=== PATIENT | female | born 1955 | race Caucasian/White ===

== ENCOUNTER → 2017-07-12 | Outpatient (CLI) | payer BC ==
[2016-05-23 10:00] VITALS: BP 115/65
[~2017-07-12] MED LIST: ACET325T9 PO; ASCO500T3 PO; BEE550CA PO; CALC500T30 PO; CETI10TA22 PO; CHOL10003 PO; CIPR500T94 PO; GARL5000 PO; IOHEXOL 240 MG/ML 50ML VIAL. PO ONE; IOHEXOL 300 MG/ML 100ML VIAL. IV ONE; MELA10CA PO; METR500T PO; NYST100054 SWSW; ONDA4TAB7 PO; RANI150T6 PO
--- NOTE | 2017-07-12 13:28 | KCIC ---
CT abdomen and pelvis with contrast History: Right lower quadrant pain for a few days, history of appendectomy and hysterectomy Technique: After the administration of oral and intravenous contrast, CT imaging was performed of the abdomen and pelvis. Multiplanar images are reviewed. Exposure: One or more of the following individualized dose reduction techniques were utilized for this examination: 1. Automated exposure control 2. Adjustment of the mA and/or kV according to patient size 3. Use of iterative reconstruction technique. Contrast: 89 cc Omnipaque 300 Comparison: January 11, 2012 Findings: There has been interval cholecystectomy. No new focal abnormality is identified of the liver, spleen, pancreas. Both kidneys enhance, no hydronephrosis. Hypodense lesion of the mid left kidney is larger up to 1.6 cm, density measurements of a cyst at 7 Hounsfield units. There is no adrenal nodularity. Bowel is not significantly dilated. There is moderate to severe diverticulosis of the sigmoid colon with associated the mild hazy and strandy change and relative wall thickening of the mid sigmoid colon located in the central and left pelvis. No discrete abscess or free air is identified. There is some displacement of the contrast in the inferior aspect of the cecum, underlying 4.2 cm CC mass not excluded. There is multilevel lumbar facet degenerative change.. Impression: 1. There is diverticulosis greatest of the sigmoid colon, also some relative wall prominence and mild strandy change about the mid sigmoid colon which may be seen with diverticulitis. Cecal mass cannot be excluded on this exam, displacement of the contrast by focus of density although could be due to underlying stool. Colon screening is advised if this has not been performed. There is no free air or free fluid. 2. There is left renal cyst. Electronically signed by: Antonino Salazar MD (07/12/2017 1:25 PM) [id number]
== END | disposition home or self-care (01) ==
LOC: KCIC CT 10:24
PROVIDERS: ATTEND Internal Medicine Gastroenterology
DX: K57.90 Diverticulosis of intestine, part unspecified, without perforation or abscess without bleeding (principal); N28.1 Cyst of kidney, acquired
CPT/HCPCS: 74177; Q9966; Q9967

== ENCOUNTER 2017-08-18 16:41 | Inpatient (IN) | payer BC ==
[~2017-08-18] VITALS: Ht 175.3 cm; Wt 73.5 kg
[~2017-08-18 16:41] MED LIST changes: -IOHEXOL 240 MG/ML 50ML VIAL. PO ONE; -IOHEXOL 300 MG/ML 100ML VIAL. IV ONE
[2017-08-18] MEDS ORDERED: IV NORMAL SALINE 1000ML BAG 1,000 ML IV ONE (17:00)
[2017-08-18 17:08] LABS: BASO # 0.1 x10^3/uL (0.0-0.2); BASO % 1 % (0-3); EOS % 2 % (0-3); HEMATOCRIT 36.9 % (36.0-47.0); HEMOGLOBIN 12.7 g/dL (12.0-15.5); LYMPH # 0.5 x10^3/uL (1.0-4.8); LYMPH % 4 % (24-48); MEAN CORPUSCULAR HEMOGLOBIN 30 pg (25-35); MEAN CORPUSCULAR HGB CONC 34 g/dL (31-37); MEAN CORPUSCULAR VOLUME 87 fL (79-100); MONO % 5 % (0-9); NEUT % 88 % (31-73); PLATELET COUNT 225 x10^3/uL (140-400); RED BLOOD COUNT 4.22 x10^6/uL (3.50-5.40); WHITE BLOOD COUNT 11.9 x10^3/uL (4.0-11.0)
[2017-08-18 17:17] LABS: CALCIUM 9.6 mg/dL (8.5-10.1); CREATININE 0.9 mg/dL (0.6-1.0); GFR 63.4; POTASSIUM 3.7 mmol/L (3.5-5.1)
[2017-08-18 17:22] LABS: ALBUMIN/GLOBULIN RATIO 1.2 (1.0-1.7); TOTAL BILIRUBIN 0.6 mg/dL (0.2-1.0); TOTAL PROTEIN 7.4 g/dL (6.4-8.2)
[2017-08-18] MEDS ORDERED: KETOROLAC 15 MG/ML VIAL. IV ONE (17:30)
[2017-08-18] MEDS ORDERED: IV NORMAL SALINE 1000ML BAG 2,790 ML IV SCH (17:30)
[2017-08-18 17:36] LABS: BILIRUBIN,URINE NEGATIVE (NEG); GLUCOSE,URINE NEGATIVE (NEG); NITRITE,URINE NEGATIVE (NEG); PROTEIN,URINE NEGATIVE (NEG-TRACE); RBC,URINE OCC /HPF (0-2); UROBILINOGEN,URINE 0.2 mg/dL (0.2 mg/dL)
[2017-08-18 17:37] LABS: BACTERIA,URINE 0 /HPF (0-FEW); SQUAMOUS EPITHELIAL CELL,UR OCC /LPF; WBC,URINE OCC /HPF (0-4)
[2017-08-18 18:11] LABS: % EOS 1 % (0-5)
[2017-08-18 18:13] LABS: PLT ESTIMATE ADEQUATE (ADEQUATE)
[2017-08-18] MEDS ORDERED: CONTRAST GIVEN MC PRN (19:00)
[2017-08-18] MEDS ORDERED: IOHEXOL 300 MG/ML 75 ML VIAL IV ONE (19:15)
--- NOTE | 2017-08-18 20:20 | RAD ---
CTA OF THE CHEST WITH AND WITHOUT CONTRAST Clinical indications: Chest pain. Shortness of air. Tachycardia. Elevated d-dimer. Technique: Noncontrast axial localizer was performed. After IV infusion of 75 cc of Omnipaque 300, helical CT scanning of the chest was performed using the CT pulmonary embolism protocol. A coronal MIP reconstruction was generated. PQRS compliance Statement One or more of the following individualized dose reduction techniques were utilized for this study: 1. Automated exposure control 2. Adjustment of the mA and/or kV according to patient size 3. Use of iterative reconstruction technique Comparison: March 21, 2010. Findings: No pulmonary embolism is evident. No thoracic aortic dissection or focal aneurysmal dilatation is seen. The heart size is normal and no pericardial effusion is seen. There are lymph nodes present within the aortopulmonary window and precarinal region and subcarinal region and azygos region and right paratracheal region and right hilar region. The largest lymph node is in the subcarinal region measuring 21 mm. This was seen previously and is unchanged. The aortic pulmonary window lymph nodes are new. The largest lymph node here measures only 9 mm. The right hilar lymph nodes are new. The largest lymph node here is 17 mm. No enlarged axillary lymphadenopathy is seen. A small hiatal hernia is seen. Bilateral interstitial and nodular lung infiltrates are seen including the right middle lobe and the lingula of the left upper lobe. No pleural effusion or pneumothorax is seen. The proximal bronchial tree is patent. The posterior left costophrenic angle and adrenal glands are not included in this study. No osteolytic process is seen. IMPRESSION: No pulmonary embolism. Interstitial and nodular lung infiltrates within the right middle lobe and the lingula of the left upper lobe which could represent inflammatory disease or infection. Reactive lymphadenopathy of the mediastinum and right hilum. Electronically signed by: Joshua Murray MD (08/18/2017 8:17 PM) [facility]
[2017-08-18] MEDS ORDERED: ACETAMINOPHEN 500 MG TABLET PO ONE (20:30)
[2017-08-18] MEDS ORDERED: ACETAMINOPHEN 325 MG TABLET. PO PRN (20:45)
[2017-08-18] MEDS ORDERED: ONDANSETRON PF 4 MG/2 ML VIAL. IV PRN (20:45)
[2017-08-18] MEDS ORDERED: VANCOMYCIN PER PHARMACY MC PRN (20:45)
--- NOTE | 2017-08-18 21:05 | PHYS DOC ---
Past Medical History Past Medical History: Bronchitis, COPD, Diverticulosis, Pneumonia, Other Additional Past Medical Histor: IBS, Spastic colon Past Surgical History: Cholecystectomy, Hysterectomy, Tonsillectomy, Tubal ligation, Other Additional Past Surgical Histo: [place], right finger Alcohol Use: Occasionally Drug Use: None Adult General Chief Complaint Chief Complaint: SHORTNESS OF BREATH HPI HPI Patient is a 61 year old female with a history significant for pneumonia in the past who presents here today complaining of fevers, cough, left-sided sharp reproducible pleuritic chest pain has been going on for several days now. Patient reports that she was recently seen and treated by her primary care physician for urinary tract infection and just finished a course of Macrodantin. Patient reports while she is taking the antibiotic she started having cough and fevers. Patient reports that she feels short of breath with ambulation. Patient denies any lower STEMI edema. Patient denies any history of PE or DVT in the past. Patient denies any pain radiating to her jaw back or arms. Patient reports occasional diaphoresis. Patient denies any ear pain or abdominal pain. Patient has a sore throat. Patient describes the pain as a sharp burning discomfort that increases with cough and his deep inspiration. Patient reports she's had low-grade fevers at home and took Tylenol approximately half an hour prior to arrival to the ER. Patient has a history significant for COPD, fibromyalgia rheumatica, total abdominal hysterectomy, cholecystectomy, ectopic , appendectomy. Patient denies any tobacco alcohol or drugs. Patient denies any history of hypertension diabetes liver or kidney problems in the past. Review of systems: Constitutional: Tactile fever Eyes: Denies change in visual acuity, redness, or eye pain HENT: Denies nasal congestion or sore throat Respiratory: Nonproductive cough, shortness of breath All other review systems negative except as documented in the history of present illness portion. Physical exam: Constitutional: Well developed, well nourished, no acute distress, non-toxic appearance. HENT: Normocephalic, atraumatic, bilateral external ears normal, nose normal. Eyes: PERRLA, EOMI, conjunctiva normal, no discharge. Neck: Normal range of motion, no tenderness, supple, no stridor. Cardiovascular:Heart rate regular rhythm, tachycardic 100% reproducible tenderness to palpation to her left anterior chest wall. Pain reproducible with deep inspiration. Lungs & Thorax: Bilateral breath sounds clear to auscultation Abdomen: Bowel sounds normal, soft, no tenderness, no masses, no pulsatile masses. Skin: Warm, dry, no erythema, no rash. Back: No tenderness, no CVA tenderness. Extremities: No tenderness, no cyanosis, ROM intact, no edema. Neurologic: Alert and oriented X 3, normal motor function, normal sensory function, no focal deficits noted. Psychologic: Affect normal, judgement normal, mood normal. Laboratory Tests Test 08/18/17 16:50 08/18/17 17:15 White Blood Count 11.9 x10^3/uL Red Blood Count 4.22 x10^6/uL Hemoglobin 12.7 g/dL Hematocrit 36.9 % Mean Corpuscular Volume 87 fL Mean Corpuscular Hemoglobin 30 pg Mean Corpuscular Hemoglobin Concent 34 g/dL Red Cell Distribution Width 14.0 % Platelet Count 225 x10^3/uL Neutrophils (%) (Auto) 88 % Lymphocytes (%) (Auto) 4 % Monocytes (%) (Auto) 5 % Eosinophils (%) (Auto) 2 % Basophils (%) (Auto) 1 % Neutrophils # (Auto) 10.4 x10^3uL Lymphocytes # (Auto) 0.5 x10^3/uL Monocytes # (Auto) 0.6 x10^3/uL Eosinophils # (Auto) 0.3 x10^3/uL Basophils # (Auto) 0.1 x10^3/uL Segmented Neutrophils % 86 % Band Neutrophils % 3 % Lymphocytes % 6 % Monocytes % 4 % Eosinophils % 1 % Platelet Estimate Adequate D-Dimer (Zahida) 0.57 ug/mlFEU Sodium Level 140 mmol/L Potassium Level 3.7 mmol/L Chloride Level 103 mmol/L Carbon Dioxide Level 27 mmol/L Anion Gap 10 Blood Urea Nitrogen 10 mg/dL Creatinine 0.9 mg/dL Estimated GFR (Cockcroft-Gault) 63.4 BUN/Creatinine Ratio 11 Glucose Level 118 mg/dL Lactic Acid Level 1.1 mmol/L Calcium Level 9.6 mg/dL Total Bilirubin 0.6 mg/dL Aspartate Amino Transf (AST/SGOT) 22 U/L Alanine Aminotransferase (ALT/SGPT) 24 U/L Alkaline Phosphatase 75 U/L Troponin I Quantitative < 0.017 ng/mL Total Protein 7.4 g/dL Albumin 4.0 g/dL Albumin/Globulin Ratio 1.2 Lipase 126 U/L Urine Collection Type Unknown Urine Color Yellow Urine Clarity Clear Urine pH 7.0 Urine Specific [place] <=1.005 Urine Protein Negative mg/dL Urine Glucose (UA) Negative mg/dL Urine Ketones (Stick) Negative mg/dL Urine Blood Negative Urine Nitrite Negative Urine Bilirubin Negative Urine Urobilinogen Dipstick 0.2 mg/dL Urine Leukocyte Esterase Negative Urine RBC Occ /HPF Urine WBC Occ /HPF Urine Squamous Epithelial Cells Occ /LPF Urine Bacteria 0 /HPF Current Medications Medications (Trade) Dose Ordered Sig/Nicole Route PRN Reason Start Time Stop Time Status Last Admin Dose Admin Ketorolac Tromethamine (Toradol) 15 mg 1X ONCE IV 08/18/17 17:30 08/18/17 17:31 DC 08/18/17 17:25 15 MG Sodium Chloride 1,000 ml @ 1,000 mls/hr 1X ONCE IV 08/18/17 17:00 08/18/17 17:59 DC 08/18/17 17:25 1,000 MLS/HR Sodium Chloride 2,790 ml @ 2,790 mls/hr Q1H IV 08/18/17 17:30 08/18/17 18:29 DC 08/18/17 18:44 2,790 MLS/HR Iohexol (Omnipaque 300 Mg/ml) 75 ml 1X ONCE IV 08/18/17 19:15 08/18/17 19:16 DC 08/18/17 18:59 75 ML Info (Do NOT chart on this entry -- for MONITORING) 1 each PRN DAILY PRN MC SEE COMMENTS 08/18/17 19:00 08/20/17 18:59 Acetaminophen (Tylenol) 1,000 mg 1X ONCE PO 08/18/17 20:30 08/18/17 20:31 DC 08/18/17 20:10 1,000 MG Levofloxacin/ Dextrose 100 ml @ 100 mls/hr 1X ONCE IV 08/18/17 21:00 08/18/17 21:59 08/18/17 20:51 100 MLS/HR Vancomycin HCl (Vanco Per Pharmacy) 1 each PRN DAILY PRN MC SEE COMMENTS 08/18/17 20:45 UNV Vancomycin HCl 1.5 gm/Sodium Chloride 500 ml @ 250 mls/hr 1X ONCE IV 08/18/17 22:00 08/18/17 23:59 Assessment and plan this is a 61-year-old female who presents here today secondary to generalized malaise, fevers, shortness of breath, chest pain. Patient's ER workup is been significant for a bilobar pneumonia. Patient had a CT scan of her chest secondary to an elevated d-dimer, tachycardia, chest pain. Since CTA of her chest revealed interstitial nodular lung infiltrates within the right middle lobe in the lingula of the left upper lobe should represent inflammatory disease versus infection. There was reactive lymphadenopathy of the mediastinum and the right hilum. Given patient's symptoms and recent bleed finishing antibiotics for urinary tract infection and still developing a bilobar pneumonia feel the patient will would benefit from IV antibiotics. I discussed the case with Dr. Anton. Patient will be admitted and will be reevaluated in the morning. Current Medications Current Medications Current Medications Medications (Trade) Dose Ordered Sig/Nicole Start Time Stop Time Status Last Admin Dose Admin Acetaminophen (Tylenol) 1,000 mg 1X ONCE 08/18/17 20:30 08/18/17 20:31 DC 08/18/17 20:10 1,000 MG Info (Do NOT chart on this entry -- for MONITORING) 1 each PRN DAILY PRN 08/18/17 19:00 08/20/17 18:59 Iohexol (Omnipaque 300 Mg/ml) 75 ml 1X ONCE 08/18/17 19:15 08/18/17 19:16 DC 08/18/17 18:59 75 ML Ketorolac Tromethamine (Toradol) 15 mg 1X ONCE 08/18/17 17:30 08/18/17 17:31 DC 08/18/17 17:25 15 MG Levofloxacin/ Dextrose 100 ml @ 100 mls/hr 1X ONCE 08/18/17 21:00 08/18/17 21:59 08/18/17 20:51 100 MLS/HR Sodium Chloride 2,790 ml @ 2,790 mls/hr Q1H 08/18/17 17:30 08/18/17 18:29 DC 08/18/17 18:44 2,790 MLS/HR Vancomycin HCl (Vanco Per Pharmacy) 1 each PRN DAILY PRN 08/18/17 20:45 UNV Vancomycin HCl 1.5 gm/Sodium Chloride 500 ml @ 250 mls/hr 1X ONCE 08/18/17 22:00 08/18/17 23:59 Allergies Allergies Allergies Coded Allergies Type Severity Reaction Last Updated Verified Latex, Natural Rubber Allergy Intermediate 12/01/14 Yes Penicillins Allergy Intermediate hives 11/30/14 Yes Proton Pump Inhibitors Allergy Intermediate 05/23/16 Yes Sulfa (Sulfonamide Antibiotics) Allergy Intermediate hives 11/30/14 Yes amoxicillin Allergy Intermediate hives 11/30/14 Yes cefpodoxime Allergy Intermediate hives 11/30/14 Yes doxycycline Allergy Intermediate hives 11/30/14 Yes erythromycin base Allergy Intermediate hives 11/30/14 Yes omeprazole Allergy Intermediate feeling of pressure in her head and chest 11/30 Yes Current Patient Data Vital Signs Vital Signs Date Time Temp Pulse Resp B/P (MAP) Pulse Ox O2 Delivery O2 Flow Rate FiO2 08/18/17 20:10 99.1 112 20 137/63 (87) 97 Room Air 99.1 Lab Values Laboratory Tests Test 08/18/17 16:50 08/18/17 17:15 White Blood Count 11.9 x10^3/uL (4.0-11.0) H Red Blood Count 4.22 x10^6/uL (3.50-5.40) Hemoglobin 12.7 g/dL (12.0-15.5) Hematocrit 36.9 % (36.0-47.0) Mean Corpuscular Volume 87 fL (79-100) Mean Corpuscular Hemoglobin 30 pg (25-35) Mean Corpuscular Hemoglobin Concent 34 g/dL (31-37) Red Cell Distribution Width 14.0 % (11.5-14.5) Platelet Count 225 x10^3/uL (140-400) Neutrophils (%) (Auto) 88 % (31-73) H Lymphocytes (%) (Auto) 4 % (24-48) L Monocytes (%) (Auto) 5 % (0-9) Eosinophils (%) (Auto) 2 % (0-3) Basophils (%) (Auto) 1 % (0-3) Neutrophils # (Auto) 10.4 x10^3uL (1.8-7.7) H Lymphocytes # (Auto) 0.5 x10^3/uL (1.0-4.8) L Monocytes # (Auto) 0.6 x10^3/uL (0.0-1.1) Eosinophils # (Auto) 0.3 x10^3/uL (0.0-0.7) Basophils # (Auto) 0.1 x10^3/uL (0.0-0.2) Segmented Neutrophils % 86 % (35-66) H Band Neutrophils % 3 % (0-9) Lymphocytes % 6 % (24-48) L Monocytes % 4 % (0-10) Eosinophils % 1 % (0-5) Platelet Estimate Adequate (ADEQUATE) D-Dimer (Zahida) 0.57 ug/mlFEU (0.00-0.50) H Sodium Level 140 mmol/L (136-145) Potassium Level 3.7 mmol/L (3.5-5.1) Chloride Level 103 mmol/L (98-107) Carbon Dioxide Level 27 mmol/L (21-32) Anion Gap 10 (6-14) Blood Urea Nitrogen 10 mg/dL (7-20) Creatinine 0.9 mg/dL (0.6-1.0) Estimated GFR (Cockcroft-Gault) 63.4 BUN/Creatinine Ratio 11 (6-20) Glucose Level 118 mg/dL (70-99) H Lactic Acid Level 1.1 mmol/L (0.4-2.0) Calcium Level 9.6 mg/dL (8.5-10.1) Total Bilirubin 0.6 mg/dL (0.2-1.0) Aspartate Amino Transferase (AST) 22 U/L (15-37) Alanine Aminotransferase (ALT) 24 U/L (14-59) Alkaline Phosphatase 75 U/L (46-116) Troponin I Quantitative < 0.017 ng/mL (0.000-0.055) Total Protein 7.4 g/dL (6.4-8.2) Albumin 4.0 g/dL (3.4-5.0) Albumin/Globulin Ratio 1.2 (1.0-1.7) Lipase 126 U/L (73-393) Urine Collection Type Unknown Urine Color Yellow Urine Clarity Clear Urine pH 7.0 Urine Specific [place] <=1.005 Urine Protein Negative mg/dL (NEG-TRACE) Urine Glucose (UA) Negative mg/dL (NEG) Urine Ketones (Stick) Negative mg/dL (NEG) Urine Blood Negative (NEG) Urine Nitrite Negative (NEG) Urine Bilirubin Negative (NEG) Urine Urobilinogen Dipstick 0.2 mg/dL (0.2 mg/dL) Urine Leukocyte Esterase Negative (NEG) Urine RBC Occ /HPF (0-2) Urine WBC Occ /HPF (0-4) Urine Squamous Epithelial Cells Occ /LPF Urine Bacteria 0 /HPF (0-FEW) Laboratory Tests 08/18/17 16:50 Laboratory Tests 08/18/17 16:50 EKG EKG [] Radiology/Procedures Radiology/Procedures [] Course & Med Decision Making Course & Med Decision Making Pertinent Labs and Imaging studies reviewed. (See chart for details) [] Dragon Disclaimer Dragon Disclaimer This electronic medical record was generated, in whole or in part, using a voice recognition dictation system. Departure Departure Impression: Primary Impression: Pneumonia Additional Impression: Failure of outpatient treatment Disposition: 09 ADMITTED INPATIENT Admitting Physician: Wilian Trujillo Condition: STABLE Referrals: Piotr TRUJILLO MD (PCP) Problem Qualifiers RASHAUN SPENCE MD Aug 18, 2017 21:04
[2017-08-18] MEDS: IV NORMAL SALINE 1000ML BAG 1,000 ML IV SCH (21:10)
[2017-08-18 21:45] VITALS: BP 137/66
[2017-08-18] MEDS ORDERED: VANCOMYCIN 1.5 GM in IV NORMAL SALINE 500ML BAG 500 ML IV ONE (22:00)
[2017-08-18] MEDS ORDERED: UBID100C26 PO (22:17)
[2017-08-18] MEDS ORDERED: OMEG1CAP6 PO (22:17)
[2017-08-18] MEDS ORDERED: GARL5000 PO (22:17)
[2017-08-19 03:46] VITALS: BP 125/63
[2017-08-19] MEDS: IV NORMAL SALINE 1000ML BAG 1,000 ML IV SCH (04:45)
[2017-08-19 07:00] VITALS: BP 123/63
--- NOTE | 2017-08-19 07:45 | EKG ---
[facility] [address] [place] [address] Test Date: 2017-08-18 Test Time: 16:45:50 Pat Name: SAKSHI STARKS Department: Room: [facility] Gender: F Assistant Editor: : 1955 Requested By: RASHAUN SPENCE Order Number: [id number] Reading MD: Vilma Murphy Measurements Intervals [place] Rate: 114 P: 132 CT: 158 QRS: 101 QRSD: 82 T: 128 QT: 324 QTc: 450 Interpretive Statements SINUS TACHYCARDIA RIGHTWARD AXIS QRS(T) CONTOUR ABNORMALITY CONSIDER ANTEROLATERAL MYOCARDIAL DAMAGE CONSIDER INFERIOR MYOCARDIAL DAMAGE ABNORMAL ECG Electronically Signed On 08-19-2017 19:29:26 CDT by Vilma Murphy
--- NOTE | 2017-08-19 09:34 | RAD ---
2 view CXR: Clinical indications: Chest pain today.. Comparison: May 23, 2016. Findings: Hyperinflation is seen consistent with COPD. Chronic elevation right hemidiaphragm and chronic pleural thickening on the right side is seen. No new lung infiltrate or pleural effusion or pulmonary edema or lung mass or pneumothorax is seen. The heart size, pulmonary vasculature, mediastinum and both rajinder are unremarkable. The osseous structures appear intact. Impression: No new radiographic abnormality is seen.
[2017-08-19] MEDS ORDERED: VANCOMYCIN 1 GM in IV NORMAL SALINE 250ML 250 ML IV SCH (10:00)
[2017-08-19 11:00] VITALS: BP 121/65
[2017-08-19] MEDS ORDERED: ZOLPIDEM 5 MG TABLET. PO PRN (11:45)
--- NOTE | 2017-08-19 11:51 | PDOC ---
PROGRESS NOTES Subjective Subjective Patient reports that her breathing is somewhat improved from yesterday. Still having sharp lateral left chest pain with deep breaths. Objective Objective Vital Signs Date Time Temp Pulse Resp B/P (MAP) Pulse Ox O2 Delivery O2 Flow Rate FiO2 08/19/17 08:00 Room Air 08/19/17 07:00 98.6 95 20 123/63 (83) 96 98.6 Physical Exam Abdomen: Normal bowel sounds, Soft, No tenderness Heart: Regular rate Extremities: No edema General: Alert, Oriented X3, No acute distress Lungs: Other (BS decreased throughout, few crackles, no wheezes heard, cough with deep breath) MUSCULOSKELETAL: Other (TTP over left lateral chest wall, no rash present) Assessment Assessment Problems Medical Problems: (1) Failure of outpatient treatment Status: Acute (2) Pneumonia Status: Acute Plan Plan of Care 1. Atypical pneumonia with COPD - some interstitial infiltrates with reactive lymphadenopathy seen on CT of chest. No hypoxia on room air. Patient did have fever of 101 this AM. Continue Levaquin, start nebs, check for influenza ( patient declines flu shots). Patient does report she was diagnosed with COPD by Dr Hendrickson and advised she might need an inhaler when she got sick but would not need one otherwise. Consider adding steroids to tx if patient fails to improve with above tx. Scheduled Naprosyn for pleuritic pain. Comment Review of Relevant I have reviewed the following items suellen (where applicable) has been applied. Labs Laboratory Tests Test 08/18/17 16:50 08/18/17 17:15 White Blood Count 11.9 x10^3/uL (4.0-11.0) Red Blood Count 4.22 x10^6/uL (3.50-5.40) Hemoglobin 12.7 g/dL (12.0-15.5) Hematocrit 36.9 % (36.0-47.0) Mean Corpuscular Volume 87 fL (79-100) Mean Corpuscular Hemoglobin 30 pg (25-35) Mean Corpuscular Hemoglobin Concent 34 g/dL (31-37) Red Cell Distribution Width 14.0 % (11.5-14.5) Platelet Count 225 x10^3/uL (140-400) Neutrophils (%) (Auto) 88 % (31-73) Lymphocytes (%) (Auto) 4 % (24-48) Monocytes (%) (Auto) 5 % (0-9) Eosinophils (%) (Auto) 2 % (0-3) Basophils (%) (Auto) 1 % (0-3) Neutrophils # (Auto) 10.4 x10^3uL (1.8-7.7) Lymphocytes # (Auto) 0.5 x10^3/uL (1.0-4.8) Monocytes # (Auto) 0.6 x10^3/uL (0.0-1.1) Eosinophils # (Auto) 0.3 x10^3/uL (0.0-0.7) Basophils # (Auto) 0.1 x10^3/uL (0.0-0.2) Segmented Neutrophils % 86 % (35-66) Band Neutrophils % 3 % (0-9) Lymphocytes % 6 % (24-48) Monocytes % 4 % (0-10) Eosinophils % 1 % (0-5) Platelet Estimate Adequate (ADEQUATE) D-Dimer (Zahida) 0.57 ug/mlFEU (0.00-0.50) Sodium Level 140 mmol/L (136-145) Potassium Level 3.7 mmol/L (3.5-5.1) Chloride Level 103 mmol/L (98-107) Carbon Dioxide Level 27 mmol/L (21-32) Anion Gap 10 (6-14) Blood Urea Nitrogen 10 mg/dL (7-20) Creatinine 0.9 mg/dL (0.6-1.0) Estimated GFR (Cockcroft-Gault) 63.4 BUN/Creatinine Ratio 11 (6-20) Glucose Level 118 mg/dL (70-99) Lactic Acid Level 1.1 mmol/L (0.4-2.0) Calcium Level 9.6 mg/dL (8.5-10.1) Total Bilirubin 0.6 mg/dL (0.2-1.0) Aspartate Amino Transf (AST/SGOT) 22 U/L (15-37) Alanine Aminotransferase (ALT/SGPT) 24 U/L (14-59) Alkaline Phosphatase 75 U/L (46-116) Troponin I Quantitative < 0.017 ng/mL (0.000-0.055) Total Protein 7.4 g/dL (6.4-8.2) Albumin 4.0 g/dL (3.4-5.0) Albumin/Globulin Ratio 1.2 (1.0-1.7) Lipase 126 U/L (73-393) Urine Collection Type Unknown Urine Color Yellow Urine Clarity Clear Urine pH 7.0 Urine Specific [place] <=1.005 Urine Protein Negative mg/dL (NEG-TRACE) Urine Glucose (UA) Negative mg/dL (NEG) Urine Ketones (Stick) Negative mg/dL (NEG) Urine Blood Negative (NEG) Urine Nitrite Negative (NEG) Urine Bilirubin Negative (NEG) Urine Urobilinogen Dipstick 0.2 mg/dL (0.2 mg/dL) Urine Leukocyte Esterase Negative (NEG) Urine RBC Occ /HPF (0-2) Urine WBC Occ /HPF (0-4) Urine Squamous Epithelial Cells Occ /LPF Urine Bacteria 0 /HPF (0-FEW) Laboratory Tests Test 08/18/17 16:50 08/18/17 17:15 White Blood Count 11.9 x10^3/uL (4.0-11.0) Red Blood Count 4.22 x10^6/uL (3.50-5.40) Hemoglobin 12.7 g/dL (12.0-15.5) Hematocrit 36.9 % (36.0-47.0) Mean Corpuscular Volume 87 fL (79-100) Mean Corpuscular Hemoglobin 30 pg (25-35) Mean Corpuscular Hemoglobin Concent 34 g/dL (31-37) Red Cell Distribution Width 14.0 % (11.5-14.5) Platelet Count 225 x10^3/uL (140-400) Neutrophils (%) (Auto) 88 % (31-73) Lymphocytes (%) (Auto) 4 % (24-48) Monocytes (%) (Auto) 5 % (0-9) Eosinophils (%) (Auto) 2 % (0-3) Basophils (%) (Auto) 1 % (0-3) Neutrophils # (Auto) 10.4 x10^3uL (1.8-7.7) Lymphocytes # (Auto) 0.5 x10^3/uL (1.0-4.8) Monocytes # (Auto) 0.6 x10^3/uL (0.0-1.1) Eosinophils # (Auto) 0.3 x10^3/uL (0.0-0.7) Basophils # (Auto) 0.1 x10^3/uL (0.0-0.2) Segmented Neutrophils % 86 % (35-66) Band Neutrophils % 3 % (0-9) Lymphocytes % 6 % (24-48) Monocytes % 4 % (0-10) Eosinophils % 1 % (0-5) Platelet Estimate Adequate (ADEQUATE) D-Dimer (Zahida) 0.57 ug/mlFEU (0.00-0.50) Sodium Level 140 mmol/L (136-145) Potassium Level 3.7 mmol/L (3.5-5.1) Chloride Level 103 mmol/L (98-107) Carbon Dioxide Level 27 mmol/L (21-32) Anion Gap 10 (6-14) Blood Urea Nitrogen 10 mg/dL (7-20) Creatinine 0.9 mg/dL (0.6-1.0) Estimated GFR (Cockcroft-Gault) 63.4 BUN/Creatinine Ratio 11 (6-20) Glucose Level 118 mg/dL (70-99) Lactic Acid Level 1.1 mmol/L (0.4-2.0) Calcium Level 9.6 mg/dL (8.5-10.1) Total Bilirubin 0.6 mg/dL (0.2-1.0) Aspartate Amino Transf (AST/SGOT) 22 U/L (15-37) Alanine Aminotransferase (ALT/SGPT) 24 U/L (14-59) Alkaline Phosphatase 75 U/L (46-116) Troponin I Quantitative < 0.017 ng/mL (0.000-0.055) Total Protein 7.4 g/dL (6.4-8.2) Albumin 4.0 g/dL (3.4-5.0) Albumin/Globulin Ratio 1.2 (1.0-1.7) Lipase 126 U/L (73-393) Urine Collection Type Unknown Urine Color Yellow Urine Clarity Clear Urine pH 7.0 Urine Specific [place] <=1.005 Urine Protein Negative mg/dL (NEG-TRACE) Urine Glucose (UA) Negative mg/dL (NEG) Urine Ketones (Stick) Negative mg/dL (NEG) Urine Blood Negative (NEG) Urine Nitrite Negative (NEG) Urine Bilirubin Negative (NEG) Urine Urobilinogen Dipstick 0.2 mg/dL (0.2 mg/dL) Urine Leukocyte Esterase Negative (NEG) Urine RBC Occ /HPF (0-2) Urine WBC Occ /HPF (0-4) Urine Squamous Epithelial Cells Occ /LPF Urine Bacteria 0 /HPF (0-FEW) Medications Current Medications Ketorolac Tromethamine (Toradol) 15 mg 1X ONCE IV Last administered on 17:25; Start 08/18/17 at 17:30; Stop 08/18/17 at 17:31; Status DC Sodium Chloride 1,000 ml @ 1,000 mls/hr 1X ONCE IV Last administered on 08/18 17:25; Start 08/18/17 at 17:00; Stop 08/18/17 at 17:59; Status DC Sodium Chloride 2,790 ml @ 2,790 mls/hr Q1H IV Last administered on 18:44; Start 08/18/17 at 17:30; Stop 08/18/17 at 18:29; Status DC Iohexol (Omnipaque 300 Mg/ml) 75 ml 1X ONCE IV Last administered on 18:59; Start 08/18/17 at 19:15; Stop 08/18/17 at 19:16; Status DC Info (Do NOT chart on this entry -- for MONITORING) 1 each PRN DAILY PRN MC SEE COMMENTS; Start 08/18/17 at 19:00; Stop 08/20/17 at 18:59 Acetaminophen (Tylenol) 1,000 mg 1X ONCE PO Last administered on 08/18/17 20 :10; Start 08/18/17 at 20:30; Stop 08/18/17 at 20:31; Status DC Levofloxacin/ Dextrose 100 ml @ 100 mls/hr 1X ONCE IV Last administered on 20:51; Start 08/18/17 at 21:00; Stop 08/18/17 at 22:00; Status DC Vancomycin HCl (Vanco Per Pharmacy) 1 each PRN DAILY PRN MC SEE COMMENTS Last administered on 08/19/17 01:16; Start 08/18/17 at 20:45 Vancomycin HCl 1.5 gm/Sodium Chloride 500 ml @ 250 mls/hr 1X ONCE IV Last administered on 08/18/17 22:27; Start 08/18/17 at 22:00; Stop 08/18/17 at 23 :59; Status DC Ondansetron HCl (Zofran) 4 mg PRN Q8HRS PRN IV NAUSEA/VOMITING; Start at 20:45; Stop 08/19/17 at 20:44 Sodium Chloride 1,000 ml @ 125 mls/hr Q8H IV Last administered on 08/19/17 04:45; Start 08/18/17 at 20:45; Stop 08/19/17 at 20:44 Acetaminophen (Tylenol) 650 mg PRN Q4HRS PRN PO FEVER Last administered on 03:40; Start 08/18/17 at 20:45; Stop 08/19/17 at 20:44 Vancomycin HCl 1 gm/Sodium Chloride 250 ml @ 250 mls/hr Q12H IV Last administered on 08/19/17 10:25; Start 08/19/17 at 10:00 Vancomycin HCl 1 each 1X ONCE MC ; Start 08/20/17 at 09:30; Stop 08/20/17 at 09:31 Active Scripts Active Tylenol (Acetaminophen) 325 Mg Tablet 650 Mg PO PRN Q4HRS PRN Reported Garlique (Garlic) 5,000 Mcg Tablet 5,000 Mcg PO DAILY Coq-10 (Ubidecarenone) 100 Mg Capsule 100 Mg PO DAILY Fish Oil 1,000 Mg Capsule ([place]-3 Fatty Acids/Fish Oil) 1 Each Capsule 1 Each PO DAILY05 Zyrtec (Cetirizine Hcl) 10 Mg Tablet 1 Tab PO DAILY PRN Zantac (Ranitidine Hcl) 150 Mg Tablet 1 Tab PO HS Vitals/I & O Vital Sign - Last 24 Hours 08/18/17 08/18/17 08/18/17 08/18/17 16:50 17:00 17:05 17:30 Temp 99.3 100.7 99.3 100.7 Pulse 114 106 114 Resp 16 20 20 B/P (MAP) 142/75 (97) 141/71 (94) 130/75 (93) Pulse Ox 94 95 95 O2 Delivery Room Air Room Air 08/18/17 08/18/17 08/18/17 08/18/17 18:30 18:40 19:04 19:49 Pulse 100 106 107 108 Resp 16 16 20 20 B/P (MAP) 135/69 (91) 136/77 (96) 127/60 (82) 126/60 (82) Pulse Ox 97 97 96 97 O2 Delivery Room Air 08/18/17 08/18/17 08/18/17 08/18/17 20:10 20:53 21:25 21:45 Temp 99.1 99.7 99.1 99.7 Pulse 112 109 106 104 Resp 20 18 17 18 B/P (MAP) 137/63 (87) 128/69 (88) 129/62 (84) 137/66 (89) Pulse Ox 97 96 96 95 O2 Delivery Room Air Room Air Room Air Room Air 08/18/17 08/18/17 08/18/17 08/19/17 21:45 23:13 23:32 03:46 Temp 99.7 101.1 99.7 101.1 Pulse 104 107 Resp 18 18 B/P (MAP) 137/66 (89) 125/63 (83) Pulse Ox 95 95 O2 Delivery Room Air Room Air Room Air Room Air 08/19/17 08/19/17 07:00 08:00 Temp 98.6 98.6 Pulse 95 Resp 20 B/P (MAP) 123/63 (83) Pulse Ox 96 O2 Delivery Room Air Room Air ANIRUDH CLAROS MD Aug 19, 2017 11:51
[2017-08-19] MEDS: ALBUTEROL SULFATE 2.5 MG/3 ML NEBU. NEB SCH ×3 (12:00→19:39)
--- NOTE | 2017-08-19 12:18 | HP ---
ADMIT DATE: 08/18/2017 CHIEF COMPLAINT: Shortness of breath and chest pain. HISTORY OF PRESENT ILLNESS: The patient is a 61-year-old female with a history of chronic obstructive pulmonary disease who presented to the Emergency Room with the above complaint. She reported the onset of some shortness of breath earlier on the day of admission. She had not noticed a cough, but did feel some shortness of air when she was up and doing her usual activities. She also had the onset of a sharp pain on the left lateral chest wall, which was present when she took a deep breath. She also had the onset of a low grade fever earlier on the day of admission. When her symptoms persisted, she came to the Emergency Room. A chest x-ray showed hyperinflation consistent with chronic obstructive pulmonary disease. There were no new infiltrates seen. The patient had a CTA of the chest done for further evaluation, which did show interstitial and nodular lung infiltrates within the right middle lobe and the lingula of the left upper lobe. There was also reactive lymphadenopathy seen. The patient was started on antibiotics and admitted for further treatment. PAST MEDICAL HISTORY: Chronic obstructive pulmonary disease. The patient reports that Dr. Hendrickson diagnosed her with this a year or so ago. She has never smoked cigarettes, but was exposed to secondhand smoke as a child. Recent urinary tract infection, treated with Macrobid by urgent care. PAST SURGICAL HISTORY: Total abdominal hysterectomy, cholecystectomy, ectopic , appendectomy. ALLERGIES: THE PATIENT IS ALLERGIC OR INTOLERANT OF LATEX, NATURAL RUBBER, PENICILLINS, PROTON PUMP INHIBITORS, SULFA, ATORVASTATIN, CEFPODOXIME, DOXYCYCLINE, ERYTHROMYCIN BASE. HOME MEDICATIONS: The patient reports she takes no prescription pain medicine and takes [id number] Tylenol and Aleve as needed. FAMILY HISTORY: Noncontributory. SOCIAL HISTORY: The patient is . She is retired. She has never smoked cigarettes. She does not drink alcohol to excess. REVIEW OF SYSTEMS: The patient had one episode of low-grade fever on the day of admission as in the HPI. She denies any chronic cough or chronic shortness of breath. She denies substernal chest pain. She denies abdominal pain, nausea or vomiting. She was having dysuria and increased urinary frequency a week ago when she went to urgent care. She has just completed a week of Macrobid and reports that her urinary symptoms have resolved. The patient has not had a flu shot this year as she declines flu shots. PHYSICAL EXAMINATION: GENERAL: The patient is alert and oriented x 3, resting comfortably in bed, in no acute distress. HEENT: PERRL, EOMI, sclerae clear. Oropharynx: Mucous membranes moist. NECK: Supple, without lymphadenopathy. CHEST: Breath sounds are decreased throughout. There are a few dry crackles heard. No wheezes are present. The patient does cough when she takes a deep breath. CARDIOVASCULAR: Regular rhythm without murmur. There is moderate tenderness to palpation over the left lateral chest wall. No rash present in the area. ABDOMEN: Soft, nontender, normoactive bowel sounds are present. EXTREMITIES: Without edema. ASSESSMENT AND PLAN: Atypical pneumonia with chronic obstructive pulmonary disease. The patient did have a fever to 101 earlier this morning. She continues without hypoxia on room air. We will continue her on Levaquin and start scheduled nebulizer treatments. We will also check the patient for influenza. Naprosyn has been ordered to help with her pleuritic pain. ANIRUDH CLAROS MD DR: JUDY/man JOB#: [id number] / [id number] JORGE
[2017-08-19] MEDS: NAPROXEN 500 MG TABLET PO SCH ×3 (13:19→20:21)
[2017-08-19 15:14] VITALS: BP 121/70
[2017-08-19 15:41] LABS: OBC FLU VALID
[2017-08-19 19:00] VITALS: BP 99/54
[2017-08-19 23:00] VITALS: BP 96/54
[2017-08-20 03:00] VITALS: BP 92/57
[2017-08-20 07:00] VITALS: BP 91/49
[2017-08-20] MEDS: ALBUTEROL SULFATE 2.5 MG/3 ML NEBU. NEB SCH (07:25)
[2017-08-20] MEDS: NAPROXEN 500 MG TABLET PO SCH (08:07)
[2017-08-20] MEDS ORDERED: BUDE10.2 IH (08:56)
[2017-08-20] MEDS ORDERED: LEVO500T59 PO (08:56)
[2017-08-20] MEDS ORDERED: UMEC62.5 IH (08:56)
--- NOTE | 2017-08-20 09:03 | PDOC3 ---
Discharge Summary [facility] Date of Admission: Aug 19, 2017 Discharge Date: Aug 20, 2017 Admitting Diagnosis pneumonia Problems: Final Diagnosis acute COPD exacerbation with atypical pneumonia CONSULTS none Procedures none Brief Hospital Course Ms. Garcia is a 61 old who presented with fever left sided pleuritic chest pain with SOA and had a CTA that was negative for PE but showed some atypical changes in her lungs but no consolidation. She was started on antibiotics and is feeling much better and is now afebrile but is coughing up some phlegm this am. Blood cultures negative. Mild leukocytosis. She wants to go home and finish her treatment course as an outpatient. She does not have a nebulizer at home but feels she can manage with inhalers. She was on Incruse for a year until her free copay Patient History: Family history: Cardiovascular disease (situation) GRANDFATHER (heart attack) Family history: Diabetes mellitus (situation) 33 FATHER 32 MOTHER G8 SON G8 SISTER GRANDFATHER GRANDMOTHER Problems: CONDITION AT DISCHARGE: Improved, Stable Diet regular Scheduled Garlic (Garlique), 5,000 MCG PO DAILY, (Reported) [place]-3 Fatty Acids/Fish Oil (Fish Oil 1,000 Mg Capsule), 1 EACH PO DAILY05, ( Reported) Ranitidine Hcl (Zantac), 1 TAB PO HS, (Reported) Ubidecarenone (Coq-10), 100 MG PO DAILY, (Reported) Scheduled PRN Acetaminophen (Tylenol), 650 MG PO PRN Q4HRS PRN for PAIN / TEMP Cetirizine Hcl (Zyrtec), 1 TAB PO DAILY PRN for ALLERGIES, (Reported) Discontinued Medications Cholecalciferol (Vitamin D3) (Vitamin D3), 1 TAB PO DAILY, (Reported) Melatonin (Melatonin), 10 MG PO HS PRN for INSOMNIA, (Reported) Follow Up 1-2 weeks Piotr TRUJILLO MD Aug 20, 2017 09:03
== END 2017-08-20 10:36 | disposition home or self-care (01) | DRG 194 ==
LOC: ER 16:41 → 5 NORTH 20:44
PROVIDERS: ADMIT Family Medicine; ATTEND Family Medicine
DX: J18.9 Pneumonia, unspecified organism (principal); J44.0 Chronic obstructive pulmonary disease with (acute) lower respiratory infection; J44.1 Chronic obstructive pulmonary disease with (acute) exacerbation; K58.9 Irritable bowel syndrome, unspecified; M79.7 Fibromyalgia; Z82.49 Family history of ischemic heart disease and other diseases of the circulatory system; Z83.3 Family history of diabetes mellitus; Z87.01 Personal history of pneumonia (recurrent); Z90.710 Acquired absence of both cervix and uterus; K57.90 Diverticulosis of intestine, part unspecified, without perforation or abscess without bleeding; Z90.49 Acquired absence of other specified parts of digestive tract; Z98.51 Tubal ligation status
CPT/HCPCS: 36415; 71020; 71275; 80053; 81001; 83605; 83690; 84484; 85007; 85025; 85379; 87040; 87804; 93005; 94250; 94640; 94760; 96361; 96365; 96375; J1885; J1956; J3370; J7030; J7040; J7050; J7613; Q9967; 99285-25

== ENCOUNTER → 2018-03-04 | Outpatient (CLI) | payer BC | END | disposition home or self-care (01) | LOC: RAD 13:07 | DX: J98.4 Other disorders of lung (principal); J44.0 Chronic obstructive pulmonary disease with (acute) lower respiratory infection | CPT/HCPCS: 71046 ==

== ENCOUNTER → 2018-12-13 | Outpatient (CLI) | payer BC ==
[~2018-12-13] MED LIST changes: +BUDE10.2 IH; +LEVO500T59 PO; +OMEG1CAP6 PO; +RANI150T21 PO; -RANI150T6 PO; +UBID100C26 PO; +UMEC62.5 IH
--- NOTE | 2018-12-13 09:08 | RAD ---
Examination: CT chest without contrast HISTORY: History of interstitial lung disease COMPARISON: 08/18/2017 TECHNIQUE: Axial CT images of the chest were performed without contrast. Coronal and sagittal reformats performed Exposure: One or more of the following individualized dose reduction techniques were utilized for this examination: 1. Automated exposure control 2. Adjustment of the mA and/or kV according to patient size 3. Use of iterative reconstruction technique FINDINGS: The central airways are patent. The heart size grossly appears unremarkable. Coronary artery calcifications identified. There is a small lymph node identified in the pretracheal region measuring 1.2 cm. Minimal apical lung scarring changes. Minimal nodular interstitial lung markings identified in the right middle lobe and left lingula of the lung appear less prominent compared to prior exam. No evidence of traction bronchiectasis or honeycombing changes identified. The visualized noncontrasted liver, spleen, adrenals grossly appears unremarkable. Cholecystectomy clips identified. Partially visualized cystic structure identified in the left kidney measuring 2 cm. Mild degenerative changes thoracic spine. IMPRESSION: 1. Interval mild decrease in nodular interstitial lung markings identified in the right middle lobe and left lingula of the lung. No evidence of traction bronchiectasis or honeycombing changes. 2. Coronary artery calcifications. 3. 2 cm cystic structure identified in the left kidney partially visualized could be a cyst or cystic lesion. Electronically signed by: Ceasar Benitez MD (12/13/2018 9:03 AM) [id number]
== END | disposition home or self-care (01) ==
LOC: CT 08:32
PROVIDERS: ATTEND Internal Medicine Critical Care Medicine
DX: R91.1 Solitary pulmonary nodule (principal); I25.10 Atherosclerotic heart disease of native coronary artery without angina pectoris; N28.1 Cyst of kidney, acquired; Z90.49 Acquired absence of other specified parts of digestive tract
CPT/HCPCS: 71250

== ENCOUNTER → 2019-01-16 | Day surgery (SDC) | payer BC ==
[~2019-01-16] MED LIST changes: +ALBUTEROL SULFATE 2.5 MG/3 ML NEBU. NEB PRN; +EPINEPHrine 1 MG/ML VIAL INJ PRN; +HYDROmorphone 2 MG/ML VIAL IV PRN; +IV RINGERS,LACTATED 1000ML 1,000 ML IV SCH; +LIDOCAINE 1% Multi-Dose 20 ML VIAL. INJ PRN; +LIDOCAINE 1% PF 2 ML VIAL. ID PRN; +LIDOCAINE 2% VISCOUS 100 ML BOTTLE. MM PRN; +LIDOCAINE 4% TOPICAL 50 ML SOLUTION. MM PRN; +MORPHINE SULFATE 2 MG/ML VIAL. IV PRN; +PROCHLORPERAZINE 10 MG/2 ML VIAL. IV PRN; +PROPOFOL 20 ML IV ONE; +RANI-376 PO; -RANI150T21 PO; +fentaNYL PF VIAL 100 MCG/2 ML VIAL IV PRN
[2019-01-16 11:35] LABS: BASO % 1 % (0-3); EOS # 0.3 x10^3/uL (0.0-0.7); EOS % 6 % (0-3); HEMATOCRIT 38.5 % (36.0-47.0); HEMOGLOBIN 12.6 g/dL (12.0-15.5); LYMPH # 1.7 x10^3/uL (1.0-4.8); LYMPH % 31 % (24-48); MEAN CORPUSCULAR HEMOGLOBIN 30 pg (25-35); MEAN CORPUSCULAR HGB CONC 33 g/dL (31-37); MEAN CORPUSCULAR VOLUME 90 fL (79-100); MONO # 0.4 x10^3/uL (0.0-1.1); MONO % 8 % (0-9); NEUT # 3.1 x10^3uL (1.8-7.7); NEUT % 55 % (31-73); PLATELET COUNT 247 x10^3/uL (140-400); RED BLOOD COUNT 4.27 x10^6/uL (3.50-5.40); RED CELL DISTRIBUTION WIDTH 13.6 % (11.5-14.5); WHITE BLOOD COUNT 5.7 x10^3/uL (4.0-11.0)
[2019-01-16 11:46] LABS: PROTHROMBIN TIME PATIENT 12.1 SEC (11.7-14.0)
--- NOTE | 2019-01-16 12:48 | OP ---
DATE OF SURGERY: BRONCHOSCOPY NOTE INDICATIONS: Persistent cough, abnormal CT chest. DESCRIPTION OF PROCEDURE: Informed consent was obtained from the patient. All risk and benefits were explained. She agreed to proceed with the procedure. Propofol was used by Anesthesia for sedation. The patient preferred to use the oral route for bronchoscope due to a prior history of epistaxis. Bronch was introduced through the oral route. Vocal cords moves equally with respiration. The trachea was entered. No tracheal lesions seen. Sujatha was sharp. The right lung was first examined. No endobronchial lesions seen. All the subsegments of right upper, right middle and right lower lobe were patent. There were some mucoid secretions seen in the right middle lobe. Bronchoalveolar lavage performed from the right middle lobe. Bronch was introduced into the left lung. Left upper lobe lingula and left lower lobe were visualized. There was mild inflammation seen in the lingula. Bronchoscope was performed into the lingula and bronchoalveolar lavage was performed. The patient did cough throughout the procedure. It did result in some oozing of blood post-lavage. While I was withdrawing the scope, the patient developed drop in her oxygen saturations transiently. It could have been due to laryngospasm. The scope was withdrawn and she was bagged and saturations came up very quickly. The patient did receive a squirt of epinephrine to control the minimal oozing of blood after the lavage from the lingula. IMPRESSION: 1. No significant endobronchial lesion seen. 2. Mild mucoid secretions seen in the right middle lobe. 3. Bronchoalveolar lavage performed from the right middle lobe and lingula. Follow the culture results. 4. The patient had transient hypoxia during the procedure, which immediately corrected with the withdrawal of the scope and bag mask ventilation. The patient to follow with me in the office to discuss results of the cultures. CAIT LOPEZ MD DR: LIVIER/man JOB#: [id number] / [id number]
[2019-01-16 13:01] VITALS: BP 123/63
--- NOTE | 2019-01-20 12:07 | PATHOLOGY ---
Note [facility] Accession Number: [id number] TESTS RESULT FLAG UNITS REF RANGE LAB Clinician Provided Cytology Information No. of containers..01 Other (Miscellaneous) Source: LINGULA BAL DIAGNOSIS: LINGULA BAL NEGATIVE FOR MALIGNANT CELLS. FOCALLY REACTIVE BRONCHIAL EPITHELIAL CELLS, PULMONARY MACROPHAGES, AND INFLAMMATORY CELLS PRESENT. Signed out by: Rangel Keller MD, Pathologist NPI- [id number] Performed by: Nathalia Peña, Electrician Substation ([facility]) Gross description: 01 4ML, COLORLESS, CLOUDY /LCS FLAG LEGEND: L-Low Normal,H-High Normal,LL-Alert Low,HH-Alert High <-Panic Low,>-Panic High,A-Abnormal,AA-Critical Abnormal Performed at: [address] [place] [address] Demetrius Cardona MD, [address] [facility] [address] [place] [address] Rangel Keller MD, Specimen Comment: A duplicate report has been generated due to demographic updates. Performed at: [address], [place], [place] [id number] MD Demetrius Cardona MD Phone: [phone]
--- NOTE | 2019-01-20 12:07 | PATHOLOGY ---
Note [facility] Accession Number: [id number] TESTS RESULT FLAG UNITS REF RANGE LAB Clinician Provided Cytology Information No. of containers..01 Other (Miscellaneous) Source: RML BAL DIAGNOSIS: RML BAL NEGATIVE FOR MALIGNANT CELLS. FOCALLY REACTIVE BRONCHIAL EPITHELIAL CELLS, PULMONARY MACROPHAGES, AND INFLAMMATORY CELLS PRESENT. Signed out by: Rangel Keller MD, Pathologist NPI- [id number] Performed by: Nathalia Peña, Hydration Plant Operator ([facility]) Gross description: 01 4ML, COLORLESS, CLOUDY /LCS FLAG LEGEND: L-Low Normal,H-High Normal,LL-Alert Low,HH-Alert High <-Panic Low,>-Panic High,A-Abnormal,AA-Critical Abnormal Performed at: [address] [place] [address] Demetrius Cardona MD, [address] [facility] [address] [place] [address] Rangel Keller MD, Specimen Comment: A courtesy copy of this report has been sent to Specimen Comment: [phone]. Specimen Comment: Report sent to Specimen Comment: A duplicate report has been generated due to demographic updates. Performed at: [address] [place] [address], [place] [id number] MD Demetrius Cardona MD Phone: [phone]
== END | disposition home or self-care (01) ==
LOC: SURG 10:58
PROVIDERS: ATTEND Internal Medicine Critical Care Medicine
DX: R91.8 Other nonspecific abnormal finding of lung field (principal); Z79.01 Long term (current) use of anticoagulants
CPT/HCPCS: 31624; 36415; 85025; 85610; 87070; 87102; 87116; 87205; 88112; 94640; J0171; J2704; J7613; 31622; 87015

== ENCOUNTER → 2020-08-27 | Outpatient (CLI) | payer MEDICARE ==
[2019-01-16 13:01] VITALS: BP 123/63
[~2020-08-27] MED LIST changes: -ALBUTEROL SULFATE 2.5 MG/3 ML NEBU. NEB PRN; -CETI10TA22 PO; +CETI10TA74 PO; -EPINEPHrine 1 MG/ML VIAL INJ PRN; -HYDROmorphone 2 MG/ML VIAL IV PRN; -IV RINGERS,LACTATED 1000ML 1,000 ML IV SCH; -LIDOCAINE 1% Multi-Dose 20 ML VIAL. INJ PRN; -LIDOCAINE 1% PF 2 ML VIAL. ID PRN; -LIDOCAINE 2% VISCOUS 100 ML BOTTLE. MM PRN; -LIDOCAINE 4% TOPICAL 50 ML SOLUTION. MM PRN; -MORPHINE SULFATE 2 MG/ML VIAL. IV PRN; -PROCHLORPERAZINE 10 MG/2 ML VIAL. IV PRN; -PROPOFOL 20 ML IV ONE; -fentaNYL PF VIAL 100 MCG/2 ML VIAL IV PRN
--- NOTE | 2020-08-27 15:12 | RAD ---
EXAM: CT CHEST WITHOUT CONTRAST HISTORY: Pneumonia, ILD COMPARISON: CT chest 12/13/2019 TECHNIQUE: Helical CT of the chest performed without contrast. Coronal and sagittal reformats were obtained. One or more of the following individualized dose reduction techniques were utilized for this examination: 1. Automated exposure control 2. Adjustment of the mA and/or kV according to patient size 3. Use of iterative reconstruction technique. FINDINGS: Thyroid gland and thoracic inlet: Unremarkable. Heart and great vessels: Heart is normal in size. No pericardial effusion. There are coronary artery calcifications. The thoracic aorta is normal in caliber. Mediastinum and rajinder: No lymphadenopathy. Lungs and pleura: Nodular and interstitial opacities in the medial and inferior right middle lobe and lingula are unchanged. There is no new abnormality. No honeycombing or definite traction bronchiectasis. No pleural effusion. Chest wall and axillae: Normal. Upper abdomen: Surgical changes of cholecystectomy. Partially visualized 2 cm cystic lesion in the left kidney is unchanged. Bones: No acute osseous abnormality. IMPRESSION: Unchanged nodular interstitial opacities in the right middle lobe and lingula. No new abnormality. Electronically signed by: Irena Waters MD (08/27/2020 3:09 PM) [id number]
== END ==
LOC: CT 09:33
PROVIDERS: ATTEND Internal Medicine Critical Care Medicine
DX: J18.9 Pneumonia, unspecified organism (principal); R91.1 Solitary pulmonary nodule; I25.10 Atherosclerotic heart disease of native coronary artery without angina pectoris
CPT/HCPCS: 71250

== ENCOUNTER 2021-02-23 15:15 | Observation (INO) | payer MEDICARE ==
[~2021-02-23] VITALS: Ht 175.3 cm; Wt 72.6 kg
--- NOTE | 2021-02-23 15:45 | PHYS DOC ---
Past Medical History Past Medical History: Bronchitis, COPD, Diverticulosis, Pneumonia, Other Additional Past Medical Histor: IBS, Spastic colon Past Surgical History: Cholecystectomy, Hysterectomy, Tonsillectomy, Tubal ligation, Other Additional Past Surgical Histo: [place], right finger Smoking Status: Never Smoker Alcohol Use: Occasionally Drug Use: None General Adult EDM: Chief Complaint: CHEST PAIN HPI: HPI: Patient is a 65 year old female who presented to ER due to substernal chest pain rating to her left shoulder and arm started last night. Patient also feels like her heart was racing multiple times today. Patient denies any cough or fever, no abdominal pain, no nausea vomiting. Patient denies history of diabetic, no history hypertension, no history of blood clot disorder. Patient denies any history of heart disease. Patient has history of COPD, she is not on any oxygen. Review of Systems: Review of Systems: Constitutional: Denies fever or chills. [] Eyes: Denies change in visual acuity. [] HENT: Denies nasal congestion or sore throat. [] Respiratory: Denies cough or shortness of breath. [] Cardiovascular: Positive for chest pain, no edema GI: Denies abdominal pain, nausea, vomiting, bloody stools or diarrhea. [] : Denies dysuria. [] Musculoskeletal: Denies back pain or joint pain. [] Integument: Denies rash. [] Neurologic: Denies headache, focal weakness or sensory changes. [] Endocrine: Denies polyuria or polydipsia. [] Lymphatic: Denies swollen glands. [] Psychiatric: Denies depression or anxiety. [] Heart Score: C/O Chest Pain: Yes HEART Score for Chest Pain: HEART Score for Chest Pain Response (Comments) Value History Moderately Suspicious 1 ECG Nonspecific Repolarizatio 1 Age > 65 2 Risk Factors 1 or 2 Risk Factors 1 Troponin < Normal Limit 0 Total 5 Risk Factors: Risk Factors: DM, Current or recent (<one month) smoker, HTN, HLP, family history of CAD, obesity. Risk Scores: Score 0 - 3: 2.5% MACE over next 6 weeks - Discharge Home Score 4 - 6: 20.3% MACE over next 6 weeks - Admit for Clinical Observation Score 7 - 10: 72.7% MACE over next 6 weeks - Early Invasive Strategies Allergies: Allergies: Allergies Coded Allergies Type Severity Reaction Last Updated Verified Latex, Natural Rubber Allergy Intermediate 1/27/15 Yes Penicillins Allergy Intermediate hives 11/30/14 Yes Proton Pump Inhibitors Allergy Intermediate 05/23/16 Yes Sulfa (Sulfonamide Antibiotics) Allergy Intermediate hives 11/30/14 Yes amoxicillin Allergy Intermediate hives 11/30/14 Yes cefpodoxime Allergy Intermediate hives 11/30/14 Yes doxycycline Allergy Intermediate hives 11/30/14 Yes erythromycin base Allergy Intermediate hives 11/30/14 Yes omeprazole Allergy Intermediate feeling of pressure in her head and chest 11/30/14 Yes atorvastatin Allergy Mild 08/18/17 Yes Physical Exam: PE: Constitutional: Well developed, well nourished, no acute distress, non-toxic appearance. [] HENT: Normocephalic, atraumatic, bilateral external ears normal, oropharynx moist, no oral exudates, nose normal. . Eyes: PERRLA, EOMI, conjunctiva normal, no discharge. [] Neck: Normal range of motion, no tenderness, supple, no stridor. [] Cardiovascular:Heart rate regular rhythm, no murmur [] Lungs & Thorax: Bilateral breath sounds clear to auscultation [] Abdomen: Bowel sounds normal, soft, no tenderness, no masses, no pulsatile mas ses. [] Skin: Warm, dry, no erythema, no rash. [] Back: No tenderness, no CVA tenderness. [] Extremities: No tenderness, no cyanosis, no clubbing, ROM intact, no edema. [] Neurologic: Alert and oriented X 3, normal motor function, normal sensory function, no focal deficits noted. [] Psychologic: Affect normal, judgement normal, mood normal. [] Current Patient Data: Labs: Laboratory Tests Test 02/23/21 15:37 White Blood Count 7.6 x10^3/uL Red Blood Count 4.51 x10^6/uL Hemoglobin 13.8 g/dL Hematocrit 40.3 % Mean Corpuscular Volume 89 fL Mean Corpuscular Hemoglobin 31 pg Mean Corpuscular Hemoglobin Concent 34 g/dL Red Cell Distribution Width 14.0 % Platelet Count 266 x10^3/uL Neutrophils (%) (Auto) 58 % Lymphocytes (%) (Auto) 29 % Monocytes (%) (Auto) 9 % Eosinophils (%) (Auto) 4 % Basophils (%) (Auto) 1 % Neutrophils # (Auto) 4.4 x10^3/uL Lymphocytes # (Auto) 2.2 x10^3/uL Monocytes # (Auto) 0.7 x10^3/uL Eosinophils # (Auto) 0.3 x10^3/uL Basophils # (Auto) 0.1 x10^3/uL Sodium Level 145 mmol/L Potassium Level 4.0 mmol/L Chloride Level 106 mmol/L Carbon Dioxide Level 26 mmol/L Anion Gap 13 Blood Urea Nitrogen 17 mg/dL Creatinine 0.9 mg/dL Estimated GFR (Cockcroft-Gault) 62.6 BUN/Creatinine Ratio 19 Glucose Level 110 mg/dL Calcium Level 9.4 mg/dL Magnesium Level 2.5 mg/dL Total Bilirubin 0.3 mg/dL Aspartate Amino Transf (AST/SGOT) 13 U/L Alanine Aminotransferase (ALT/SGPT) 20 U/L Alkaline Phosphatase 83 U/L Troponin I Quantitative < 0.017 ng/mL OI-Whs-L-Type Natriuretic Peptide 21 pg/mL Total Protein 7.9 g/dL Albumin 4.3 g/dL Albumin/Globulin Ratio 1.2 Lipase 117 U/L EKG: EKG: EKG was done at 1328, heart rate of 98 bpm, normal sinus rhythm, no ST segment elevation. Radiology/Procedures: Radiology/Procedures: [][facility] [address] [place], [place] [id number] IMAGING REPORT Signed PATIENT: SAKSHI STARKS ACCOUNT: [id number] : 1955 LOCATION: ER AGE: 65 SEX: F EXAM STATUS: REG ER ORD. PHYSICIAN: LILIANA EMERY DO REASON: chest pain - RN ASKED TO RETURN LATER PROCEDURE: PORTABLE CHEST 1V EXAM: Chest, single view. HISTORY: Chest pain. COMPARISON: 03/04/2018 FINDINGS: A frontal view of the chest is obtained. There is no infiltrate, pleural effusion or pneumothorax. There is stable blunting of the right costophrenic angle likely due to basilar pleural parenchymal scarring. There are chronic appearing interstitial changes. The heart is normal in size. IMPRESSION: No acute pulmonary finding. Electronically signed by: Hattie Robledo MD (02/23/2021 4:07 PM) [id number] DICTATED and SIGNED BY: HATTIE ROBLEDO MD DATE: 02/23/21 [id number] 0 Course & Med Decision Making: Course & Med Decision Making Pertinent Labs and Imaging studies reviewed. (See chart for details) Patient is a 65-year-old female who presented to ER due to chest pain, EKG and cardiac exam normal so far. We will admit her to hospital for further evaluation and treatment. Dragon Disclaimer: Dragon Disclaimer: This electronic medical record was generated, in whole or in part, using a voice recognition dictation system. Departure Departure Impression: Primary Impression: Chest pain Disposition: ADMITTED INPATIENT Admitting Physician: OZZIE (Dr. Oh) Condition: STABLE Referrals: Piotr TRUJILLO MD (PCP) LILIANA EMERY DO Feb 23, 2021 15:45
[2021-02-23 15:49] LABS: BASO # 0.1 x10^3/uL (0.0-0.2); BASO % 1 % (0-3); EOS # 0.3 x10^3/uL (0.0-0.7); EOS % 4 % (0-3); HEMATOCRIT 40.3 % (36.0-47.0); HEMOGLOBIN 13.8 g/dL (12.0-15.5); LYMPH # 2.2 x10^3/uL (1.0-4.8); LYMPH % 29 % (24-48); MEAN CORPUSCULAR HEMOGLOBIN 31 pg (25-35); MEAN CORPUSCULAR HGB CONC 34 g/dL (31-37); MEAN CORPUSCULAR VOLUME 89 fL (79-100); MONO # 0.7 x10^3/uL (0.0-1.1); MONO % 9 % (0-9); NEUT # 4.4 x10^3/uL (1.8-7.7); NEUT % 58 % (31-73); PLATELET COUNT 266 x10^3/uL (140-400); RED BLOOD COUNT 4.51 x10^6/uL (3.50-5.40); WHITE BLOOD COUNT 7.6 x10^3/uL (4.0-11.0)
[2021-02-23 16:07] LABS: CALCIUM 9.4 mg/dL (8.5-10.1); CREATININE 0.9 mg/dL (0.6-1.0); GFR 62.6
--- NOTE | 2021-02-23 16:09 | RAD ---
EXAM: Chest, single view. HISTORY: Chest pain. COMPARISON: 03/04/2018 FINDINGS: A frontal view of the chest is obtained. There is no infiltrate, pleural effusion or pneumo thorax. There is stable blunting of the right costophrenic angle likely due to basilar pleural parenc hymal scarring. There are chronic appearing interstitial changes. The heart is normal in size. IMPRESSION: No acute pulmonary finding. Electronically signed by: Hattie Ramos MD (02/23/2021 4:07 PM) [id number]
[2021-02-23 16:12] LABS: ALBUMIN 4.3 g/dL (3.4-5.0); ALBUMIN/GLOBULIN RATIO 1.2 (1.0-1.7); MAGNESIUM 2.5 mg/dL (1.8-2.4); TOTAL BILIRUBIN 0.3 mg/dL (0.2-1.0); TOTAL PROTEIN 7.9 g/dL (6.4-8.2)
[2021-02-23] MEDS ORDERED: ASPIRIN CHEWABLE 81 MG TABLET. PO ONE (18:00)
--- NOTE | 2021-02-23 18:17 | EKG ---
[facility] [address] [place] [address] Test Date: 2021-02-23 Test Time: 15:25:12 Pat Name: SAKSHI STARKS Department: Room: Gender: F Medical Record Clerk: : 1955 Requested By: LILIANA EMERY Order Number: [id number] Reading MD: Measurements Intervals [place] Rate: 98 P: 62 MD: 162 QRS: 66 QRSD: 78 T: 66 QT: 346 QTc: 444 Interpretive Statements SINUS RHYTHM NO SPECIFIC ECG ABNORMALITIES RI6.01 No previous ECG available for comparison
[2021-02-23 23:00] VITALS: BP 138/47
--- NOTE | 2021-02-23 23:30 | NUR ---
PT ADMITTED TO 211 WITH CHEST PAIN. PT DENIES PAIN AT THIS TIME. ASSESSMENT AND HISTORY COMPLETE. VSS, POC EXPLAINED PT VERBALIZED UNDERSTANDING. CALL IN PLACE, WILL CONT TO MONITOR. PMRN
[2021-02-24] MEDS ORDERED: MORPHINE SULFATE 2 MG/ML VIAL. IV PRN
[2021-02-24] MEDS ORDERED: NITROGLYCERIN SUBLINGUAL 0.4 MG BOTTLE OF 25. SL PRN
[2021-02-24] MEDS ORDERED: BUDE10.2 IH (00:09)
[2021-02-24] MEDS ORDERED: CYAN100016 SL (01:08)
[2021-02-24] MEDS ORDERED: EZET10TA20 PO (01:08)
[2021-02-24] MEDS ORDERED: ASPI-630 PO (01:08)
[2021-02-24] MEDS ORDERED: CHOL100013 PO (01:08)
[2021-02-24] MEDS ORDERED: FAMO10TA26 PO (01:08)
[2021-02-24] MEDS ORDERED: FAMOTIDINE 20 MG TABLET. PO PRN (01:30)
[2021-02-24 02:58] VITALS: BP 103/61
[2021-02-24 06:40] LABS: ALBUMIN 3.6 g/dL (3.4-5.0); ALBUMIN/GLOBULIN RATIO 1.1 (1.0-1.7); CALCIUM 8.6 mg/dL (8.5-10.1); CREATININE 0.9 mg/dL (0.6-1.0); GFR 62.6; POTASSIUM 3.9 mmol/L (3.5-5.1); TOTAL BILIRUBIN 0.5 mg/dL (0.2-1.0)
[2021-02-24 06:45] LABS: CHOLESTEROL/HDL RATIO 4.4
[2021-02-24 06:46] LABS: BASO % 1 % (0-3); EOS # 0.4 x10^3/uL (0.0-0.7); EOS % 6 % (0-3); HEMOGLOBIN 13.2 g/dL (12.0-15.5); LYMPH % 33 % (24-48); MEAN CORPUSCULAR HEMOGLOBIN 30 pg (25-35); MEAN CORPUSCULAR HGB CONC 33 g/dL (31-37); MEAN CORPUSCULAR VOLUME 90 fL (79-100); MONO # 0.6 x10^3/uL (0.0-1.1); MONO % 10 % (0-9); NEUT % 51 % (31-73); PLATELET COUNT 225 x10^3/uL (140-400); RED BLOOD COUNT 4.43 x10^6/uL (3.50-5.40); RED CELL DISTRIBUTION WIDTH 14.2 % (11.5-14.5); WHITE BLOOD COUNT 5.9 x10^3/uL (4.0-11.0)
[2021-02-24 07:55] VITALS: BP 102/55
[2021-02-24] MEDS ORDERED: CHOLECALCIFEROL (VITAMIN D3) 1,000 UNIT TABLET PO SCH (09:00)
[2021-02-24] MEDS ORDERED: OMEGA-3 FATTY ACIDS/FISH OIL 1,000 MG CAPSULE. PO SCH (09:00)
[2021-02-24] MEDS ORDERED: ASPIRIN CHEWABLE 81 MG TABLET. PO SCH (09:00)
[2021-02-24] MEDS ORDERED: CYANOCOBALAMIN (VITAMIN B-12) 1,000 MCG TABLET. PO SCH (09:00)
[2021-02-24] MEDS ORDERED: EZETIMIBE 10 MG TABLET. PO SCH (09:00)
[2021-02-24] MEDS ORDERED: LIDO:MAALOX 1:1 20 ML SINGLE DOSE. SWSW ONE (10:15)
--- NOTE | 2021-02-24 10:42 | PDOC2 ---
CARRIE MANCINI TREAD BUILDER 02/24/21 1042: CARDIAC CONSULT DATE OF CONSULT Date of Consult DATE: 02/24/21 TIME: 10:38 REASON FOR CONSULT Reason for Consult: Chest pain REFERRING PHYSICIAN Referring Physician: Adriano SOURCE Source: Chart review, Patient HISTORY OF PRESENT ILLNESS HISTORY OF PRESENT ILLNESS This is a pleasant 65 yo female admitted for complains of chest pain. Reports that she has been having this chest pain for at least couple days. This radiates to left shoulder and arm and initially had some palpitations lasting about 3 minutes with dome dizziness. Reports some epigastric discomfort few days ago. Then about 2 days ago had this sharp pain to left lower sternal chest which is reproducible as well then radiated to left chest transitioning to pressure. She does have some SOA also has some HARVEY going to the mailbox short distance but unchanged from her baseline and blaming it on her COPD which is from secondary smoking exopusre and prior frequent pulmonary infections. She does admit taking 5 times a week aleve due to arthritis and has been taking pepcid since she tried 1 type of PPI and had a side effect like her body was getting squeezed. She does have some discomfort to her chest and not worse by any exertion and told me that she has heartburn almost daily. She also could not tolerate and tried 3 statins and made her very confused. No hx of CAD and her last stress test was 3 yrs ago. No prior covid-19 exposure. Has some dizziness at times but denies any palpitations passing out and no n/v. PAST MEDICAL HISTORY Cardiovascular: Hyperlipidemia Pulmonary: Bronchitis, COPD, Pneumonia CENTRAL NERVOUS SYSTEM: Migraine GI: Diverticulosis, GERD, Hemorrhoids, Irritable bowel disease Heme/Onc: No pertinent hx Hepatobiliary: No pertinent hx Psych: Depression Musculoskeletal: Osteoarthritis Infectious disease: No pertinent hx ENT: Sincusitis, Other (tongue nodule) Renal/: No pertinent hx Endocrine: No pertinent hx Dermatology: No pertinent hx PAST SURGICAL HISTORY Past Surgical History: Cholecystectomy, Tubal Ligation, Tonsillectomy, Hysterectomy FAMILY HISTORY Family History noncontributory SOCIAL HISTORY Smoke: No ALCOHOL: none Drugs: None Lives: Alone CURRENT MEDICATIONS CURRENT MEDICATIONS Current Medications Medications (Trade) Dose Ordered Sig/Nicole Route PRN Reason Start Time Stop Time Status Last Admin Dose Admin Aspirin (Aspirin Chewable) 324 mg 1X ONCE PO 02/23/21 18:00 02/23/21 18:01 DC 02/23/21 18:05 ALLERGIES ALLERGIES: Coded Allergies: Latex, Natural Rubber (Verified Allergy, Intermediate, 12/01/14) Penicillins (Verified Allergy, Intermediate, hives, 11/30/14) Proton Pump Inhibitors (Verified Allergy, Intermediate, 05/23/16) Sulfa (Sulfonamide Antibiotics) (Verified Allergy, Intermediate, hives, 11/30/14) amoxicillin (Verified Allergy, Intermediate, hives, 11/30/14) cefpodoxime (Verified Allergy, Intermediate, hives, 11/30/14) doxycycline (Verified Allergy, Intermediate, hives, 11/30/14) erythromycin base (Verified Allergy, Intermediate, hives, 11/30/14) omeprazole (Verified Allergy, Intermediate, feeling of pressure in her head and chest, 11/30/14) atorvastatin (Verified Allergy, Mild, 08/18/17) ROS Review of System 14 point ROS evaluated with pertinent positives noted per HPI PHYSICAL EXAM General: Alert, Oriented X3, Cooperative, No acute distress HEENT: Atraumatic, Mucous membr. moist/pink Lungs: Clear to auscultation, Normal air movement Heart: Regular rate (SR no ectopies), Normal S1, Normal S2, No murmurs Abdomen: Soft, No tenderness Extremities: No cyanosis, No edema Skin: No breakdown, No significant lesion Neuro: Normal speech, Sensation intact Psych/Mental Status: Mental status NL, Mood NL MUSCULOSKELETAL: Osteoarthritic changes both hands VITALS/I&O VITALS/I&O: Vital Signs Date Time Temp Pulse Resp B/P (MAP) Pulse Ox O2 Delivery O2 Flow Rate FiO2 02/24/21 07:55 98.1 64 16 102/55 (71) 96 Room Air 98.1 I & O 02/23/21 02/23/21 02/24/21 15:00 23:00 07:00 Intake Total 300 ml Output Total 200 ml Balance 100 ml LABS Lab: Laboratory Tests Test 02/23/21 15:37 02/23/21 18:19 02/23/21 22:12 02/24/21 05:05 White Blood Count 7.6 x10^3/uL (4.0-11.0) 5.9 x10^3/uL (4.0-11.0) Red Blood Count 4.51 x10^6/uL (3.50-5.40) 4.43 x10^6/uL (3.50-5.40) Hemoglobin 13.8 g/dL (12.0-15.5) 13.2 g/dL (12.0-15.5) Hematocrit 40.3 % (36.0-47.0) 40.0 % (36.0-47.0) Mean Corpuscular Volume 89 fL (79-100) 90 fL (79-100) Mean Corpuscular Hemoglobin 31 pg (25-35) 30 pg (25-35) Mean Corpuscular Hemoglobin Concent 34 g/dL (31-37) 33 g/dL (31-37) Red Cell Distribution Width 14.0 % (11.5-14.5) 14.2 % (11.5-14.5) Platelet Count 266 x10^3/uL (140-400) 225 x10^3/uL (140-400) Neutrophils (%) (Auto) 58 % (31-73) 51 % (31-73) Lymphocytes (%) (Auto) 29 % (24-48) 33 % (24-48) Monocytes (%) (Auto) 9 % (0-9) 10 % (0-9) H Eosinophils (%) (Auto) 4 % (0-3) H 6 % (0-3) H Basophils (%) (Auto) 1 % (0-3) 1 % (0-3) Neutrophils # (Auto) 4.4 x10^3/uL (1.8-7.7) 3.0 x10^3/uL (1.8-7.7) Lymphocytes # (Auto) 2.2 x10^3/uL (1.0-4.8) 2.0 x10^3/uL (1.0-4.8) Monocytes # (Auto) 0.7 x10^3/uL (0.0-1.1) 0.6 x10^3/uL (0.0-1.1) Eosinophils # (Auto) 0.3 x10^3/uL (0.0-0.7) 0.4 x10^3/uL (0.0-0.7) Basophils # (Auto) 0.1 x10^3/uL (0.0-0.2) 0.0 x10^3/uL (0.0-0.2) Sodium Level 145 mmol/L (136-145) 144 mmol/L (136-145) Potassium Level 4.0 mmol/L (3.5-5.1) 3.9 mmol/L (3.5-5.1) Chloride Level 106 mmol/L (98-107) 108 mmol/L (98-107) H Carbon Dioxide Level 26 mmol/L (21-32) 28 mmol/L (21-32) Anion Gap 13 (6-14) 8 (6-14) Blood Urea Nitrogen 17 mg/dL (7-20) 15 mg/dL (7-20) Creatinine 0.9 mg/dL (0.6-1.0) 0.9 mg/dL (0.6-1.0) Estimated GFR (Cockcroft-Gault) 62.6 62.6 BUN/Creatinine Ratio 19 (6-20) 17 (6-20) Glucose Level 110 mg/dL (70-99) H 94 mg/dL (70-99) Calcium Level 9.4 mg/dL (8.5-10.1) 8.6 mg/dL (8.5-10.1) Magnesium Level 2.5 mg/dL (1.8-2.4) H 2.3 mg/dL (1.8-2.4) Total Bilirubin 0.3 mg/dL (0.2-1.0) 0.5 mg/dL (0.2-1.0) Aspartate Amino Transferase (AST) 13 U/L (15-37) L 14 U/L (15-37) L Alanine Aminotransferase (ALT) 20 U/L (14-59) 14 U/L (14-59) Alkaline Phosphatase 83 U/L (46-116) 65 U/L (46-116) Troponin I Quantitative < 0.017 ng/mL (0.000-0.055) < 0.017 ng/mL (0.000-0.055) < 0.017 ng/mL (0.000-0.055) KQ-Suw-L-Type Natriuretic Peptide 21 pg/mL (0-124) Total Protein 7.9 g/dL (6.4-8.2) 7.0 g/dL (6.4-8.2) Albumin 4.3 g/dL (3.4-5.0) 3.6 g/dL (3.4-5.0) Albumin/Globulin Ratio 1.2 (1.0-1.7) 1.1 (1.0-1.7) Lipase 117 U/L (73-393) D-Dimer (Zahida) 0.33 ug/mlFEU (0.00-0.50) Triglycerides Level 95 mg/dL (0-150) Cholesterol Level 215 mg/dL (0-200) H LDL Cholesterol, Calculated 147 mg/dL (0-100) H VLDL Cholesterol, Calculated 19 mg/dL (0-40) Non-HDL Cholesterol Calculated 166 mg/dL (0-129) H HDL Cholesterol 49 mg/dL (40-60) Cholesterol/HDL Ratio 4.4 Laboratory Tests 02/23/21 15:37 02/24/21 05:05 Laboratory Tests 02/23/21 15:37 02/24/21 05:05 IMAGES IMAGES Findings: Total coronary calcium score is 43. This is a mild plaque burden and low to moderate cardiovascular disease risk. This is based on the calcium score of 0 of the left main coronary artery, 43 of the left anterior descending artery, score of 0 of the left circumflex artery and score of 0 of the right coronary artery. Noncoronary findings demonstrate great vessels are normal caliber. Cardiac size normal. No pericardial effusion. Nodular and interstitial opacities in the right middle lobe and lingula are unchanged. IMPRESSION: Patient's total calcium score is 43. DATE: 09/27/20 [id number] ASSESSMENT/PLAN ASSESSMENT/PLAN 1. Atypical CP: suspect GI 2. GERD exacerbation: potential reflux esophagitis 3. Palpitations 4. COPD with hx of frequent bronchitis and pneumonia 5. HLP: on zetia. LDL not on goal 6. Multiple drug allergy including 1 PPI and 3 statins: Respectively "Body squeezing" and confusion Recommendations 1. GI cocktail. Relayed to GI PA as pt does see Dr. Barksdale. She now wants to consider endoscopy 2. Discussed avoidance of aleve or ibuprofen and utilize tylenol instead for her OA. Dietitian to see for GERD diet 3. Continue pepcid. She will benefit from PPI and will to try other formula and wants to try it, defer this to GI. As far as statins will pursue diet changes and if her FLP are unchaged even with zetia then [id number] is an option 4. Will arrange for outpt f/u and schedule for Lexiscan and Echo next week for further risk stratification given her associated SOA and risk factors. If her palpitations continues then will consider for MCOT. ZO MICHAEL MD 02/24/21 1602: CARRIE MANCINI TREAD BUILDER Feb 24, 2021 10:42 ZO MICHAEL MD Feb 24, 2021 16:02
[2021-02-24 11:00] VITALS: BP 112/68
--- NOTE | 2021-02-24 11:36 | SSS ---
ADMIT DATE: 02/23/2021 CHIEF COMPLAINT: Chest pain. HISTORY OF PRESENT ILLNESS: The patient is a pleasant 65-year-old female, presented to the ER with chest pain. It was substernal, had a little pressure to the left chest. She took some home meds but that did not work and described as irritating, rated at 7/10. I discussed the case with ER physician. We admitted the patient overnight for observation. This morning, she has been examined by cardiology. They state that she will probably go home this afternoon. We will discharge with close outpatient followup. PAST MEDICAL HISTORY: Bronchitis, COPD, diverticulosis, pneumonia, irritable bowel syndrome, spastic colon. PAST SURGICAL HISTORY: Cholecystectomy, hysterectomy, tonsillectomy, tubal ligation, bunion and finger surgery. ALLERGIES: LATEX, RUBBER, PENICILLIN, PROTON PUMP INHIBITORS, SULFA, AMOXICILLIN, ATORVASTATIN, DOXYCYCLINE, ERYTHROMYCIN, OMEPRAZOLE, ANCEF, CEFPODOXIME. FAMILY HISTORY: Hypertension. SOCIAL HISTORY: She does not drink, smoke or take drugs. MEDICATIONS: Reviewed. Please refer to the MRAD. REVIEW OF SYSTEMS:. GENERAL: No history of weight change, weakness or fevers. SKIN: No bruising, hair changes or rashes. EYES: No blurred, double or loss of vision. NOSE AND THROAT: No history of nosebleeds, hoarseness or sore throat. HEART: No history of palpitations, chest pain or shortness of breath on exertion. LUNGS: Denies cough, hemoptysis, wheezing or shortness of breath. GASTROINTESTINAL: Denies changes in appetite, nausea, vomiting, diarrhea or constipation. GENITOURINARY: No history of frequency, urgency, hesitancy or nocturia. NEUROLOGIC: Denies history of numbness, tingling, tremor or weakness. PSYCHIATRIC: No history of panic, anxiety or depression. ENDOCRINE: No history of heat or cold intolerance, polyuria or polydipsia. EXTREMITIES: Denies muscle weakness, joint pain, pain on walking or stiffness. PHYSICAL EXAMINATION: VITAL SIGNS: Within normal limits and are stable. GENERAL: No apparent distress. Alert and oriented. HENT: Normal cephalic, atraumatic, external auditory canals are patent. EYES: Extraocular muscles are intact. Pupils are equally round and reactive to light and accommodation. MUSCULOSKELETAL: Well developed, well nourished, good range of motion. ENDOCRINE: No thyromegaly was palpated. LYMPHATICS: No cervical chain or axillary nodes were noted. HEMATOPOIETIC: No bruising. NECK: Supple, no JVD, no thyromegaly was noted. LUNGS: Clear to auscultation in all lung card without rhonchi or wheezing. HEART: RRR, S1, S2 present. Peripheral pulses intact, no obvious murmurs were noted. ABDOMEN: Soft, nontender. Positive bowel sounds no organomegaly, normal bowel sounds. EXTREMITIES: Without any cyanosis, clubbing, or edema. pedal pulses intact, Homans sign is negative. NEUROLOGIC: Normal speech, normal tone. A and O x 3, moves all extremities, no obvious focal deficits. PSYCHIATRIC: Normal affect, normal mood. Stable. SKIN: No ulcerations or rashes, good skin turgor, no jaundice. VASCULAR: Good capillary refill, neurovascular bundle appears to be intact. LABORATORY DATA: Troponin is 0. Chest x-ray normal. ASSESSMENT AND PLAN: Resolving atypical chest pain. We admitted the patient. We did serial enzymes, serial EKGs. We consulted Cardiology, they are likely going to let her go home this afternoon. We are going to discharge with close outpatient followup. DISPOSITION: Home. ACTIVITY: As tolerated. DIET: Low sodium. MEDICATIONS: Please see the MRAD. Tylenol p.r.n., aspirin 81 a day, Symbicort 1 puff daily, Zyrtec 10 a day, vitamin D3, vitamin B12, Zetia 10 a day, Pepcid 10 b.i.d. p.r.n., omega-3 fatty acid, and CoQ10. Total time 32 minutes. [facility] DR: Keeley TID: [id number]
--- NOTE | 2021-02-24 12:02 | NUR ---
SS following for discharge planning. SS reviewed pt chart and discussed with pt RN. Pt is from home and is currently on room air. Cardiology consulted. Discharge order on the chart for home with self care.
--- NOTE | 2021-02-24 12:36 | NUR ---
Discharge Note: patient did not want to take scheduled medications before going home SAKSHI STARKS Discharge instructions and discharge home medications reviewed with Patient and a copy given. All questions have been answered and understanding verbalized. The following instructions and handouts were given: discharge instructions, follow up appointment, stress test prep Discontinued lines and drains: Peripheral IV intact. Patient discharged to Home or Self Care with Self via Ambulated
== END 2021-02-24 12:50 | disposition home or self-care (01) ==
LOC: ER 15:15 → ED HOLD 17:09 → 2 NORTH 19:55
PROVIDERS: ADMIT Internal Medicine; ATTEND Internal Medicine
DX: R07.89 Other chest pain (principal); J44.9 Chronic obstructive pulmonary disease, unspecified; E78.5 Hyperlipidemia, unspecified; J18.9 Pneumonia, unspecified organism; K57.90 Diverticulosis of intestine, part unspecified, without perforation or abscess without bleeding; K21.9 Gastro-esophageal reflux disease without esophagitis; F32.9 Major depressive disorder, single episode, unspecified; K64.9 Unspecified hemorrhoids; K58.9 Irritable bowel syndrome, unspecified; M19.90 Unspecified osteoarthritis, unspecified site; R00.2 Palpitations; Z90.710 Acquired absence of both cervix and uterus; Z90.49 Acquired absence of other specified parts of digestive tract; Z98.51 Tubal ligation status; Z98.890 Other specified postprocedural states; Z79.82 Long term (current) use of aspirin
CPT/HCPCS: 36415; 71045; 80053; 80061; 83690; 83735; 83880; 84484; 85025; 85379; 93005; 99285; G0378; G0379

== ENCOUNTER → 2021-03-04 | Outpatient (CLI) | payer MEDICARE ==
[2021-02-24 11:00] VITALS: BP 112/68
[~2021-03-04] MED LIST changes: +ASPI-630 PO; +CHOL100013 PO; +CYAN100016 SL; +EZET10TA20 PO; +FAMO10TA26 PO; +REGADENOSON 0.4 MG/5 ML DISP.SYRIN. IV ONE
--- NOTE | 2021-03-04 13:08 | RAD ---
MR#: [id number] Date of Study: 03/04/2021 Ordering Physician: HARIKA HENRY, Referring Physician: RADHA THAO Tech: RT Ganga Osuna) (N) APPROVED REPORT Test Type: Pharmacological Stress Nurse/Tech: Mata Platt RN Test Indications: Chest Pain Cardiac History: See EMR. Medications: ASA 81mg QD, See EMR. Medical History: COPD, See EMR. Resting ECG: SR Resting Heart Rate: 70 bpm Resting Blood Pressure: 122/58mmHg Pretest Chest Pain: No chest pain Nurse/Tech Notes Lungs CTA, Heart tones regular. Consent: The procedure was explained to the patient in lay terms. Informed consent was witnessed. Ernie eout was entered into [employer]. History and Stress Test performed by RT Ganga Erickson) (N) Pharm. Details Pharmacologic stress testing was performed using 0.4mg per 5ml of regadenoson given intravenously ove r 7-10 seconds. POST EXERCISE Reason for Termination: Infusion complete Max HR: 126 bpm Max Blood Pressure: 133/59mmHg Blood Pressure response to exercise: Normal blood pressure response during stress. Heart Rate response to exercise: WNL Chest Pain: No. Arrhythmia: No. ST Change: No. INTERPRETATION Stress EKG Conclusion: Baseline EKG showed sinus rhythm. No ischemic changes at peak stress. No arr hythmias. Imaging Protocol IMAGE PROTOCOL: Rest Tc-99m/stress Tc-99m 1 day Rest: Stress: Viability: Radiopharm.Tc99m [id number] Sestamibi Dose10.7mCi 33mCi Duration 13min. 13min. Img Date 03/04/2021 03/04/2021 Inj-Img Mxby63nit. 60min. Rest Admin Site:IV - Left AntecubitalAdministrator:RT Alem EricksonR)(N) Stress Admin Site: IV - Left AntecubitalAdministrator: RT Ganga Erickson)(N) STRESS DATA End Diast. Vol.55.0mlLVEDV index BSA29.0ml End Syst. Vol.15.0mlLVESV index BSA8.0ml Myocardial Mass95.0gEject. Zyjvbcrz30.0% Stress Scores Regional WT0.00Summed WT1.00 Regional WM0.00Summed WM5.00 Study quality was good. Left Ventricular size was Normal at Rest and Stress. Lung uptake was . Left Ventricular ejection fraction is 73%. The rest and stress images show normal perfusion, normal contraction and thickening. LV Perf. Quant 17 Seg. SSS0.00 17 Seg. SRS0.00 17 Seg. SDS0.00 Stress Defect Extent (% LAD)0.00Rest Defect Extent (% LAD)0.00Rev. Defect Extent (% LAD)0.00 Stress Defect Extent (% LCX) 0.00Rest Defect Extent (% LCX)0.00Rev. Defect Extent (% LCX)0.00 Stress Defect Extent (% RCA)0.00Rest Defect Extent (% RCA)0.00Rev. Defect Extent (% RCA)0.00 Stress Defect Extent (% PENNY)0.00Rest Defect Extent (% PENNY)0.00Rev. Defect Extent (% PENNY)0.00 Conclusion 1. Regadenoson cardioisotope stress test did not show any evidence of ischemia or infarct. 2. Normal left ventricular systolic function with ejection fraction calculated at 73%. 3. Low risk for cardiac events. Signed by : Harika Henry, Electronically Approved : 03/04/2021 13:07:47
--- NOTE | 2021-03-04 13:10 | CARD ---
MR#: [id number] Date of Study: 03/04/2021 Ordering Physician: ZO MICHAEL, Referring Physician: ZO MICHAEL, Tech: Love Ravin, [facility] APPROVED REPORT EXAM: Two-dimensional and M-mode echocardiogram with Doppler and color Doppler. Other Information Quality : AverageHR: 72bpm INDICATION COPD Chest Pain RISK FACTORS Hyperlipidemia 2D DIMENSIONS RVDd2.3 (2.9-3.5cm)Left Atrium(2D)2.4 (1.6-4.0cm) IVSd0.8 (0.7-1.1cm)Aortic Root(2D)2.5 (2.0-3.7cm) LVDd4.5 (3.9-5.9cm)LVOT Diameter2.0 (1.8-2.4cm) PWd0.8 (0.7-1.1cm)LVDs2.8 (2.5-4.0cm) FS (%) 39.2 %SV65.2 ml LVEF(%)69.7 (>50%) Aortic Valve AoV Peak Andry.114.1cm/sAoV VTI22.0cm AO Peak GR.5.2mmHgLVOT Peak Andry.83.6cm/s AO Mean GR.3mmHgAVA (VMAX)2.05cm2 Mitral Valve MV E Ncaxitpk52.2cm/sMV E Peak Gr.86mmHg MV DECEL SJJO105udVI A Inrqnnzs68.3cm/s MV EXG28paP/A Ratio0.8 MVA (PHT)3.03cm2 TDI E/Lateral E'7.1E/Medial E'7.9 Pulmonary Valve PV Peak Mjgqljfa58.2cm/sPV Peak Grad.3mmHg Tricuspid Valve TR P. Gjulwska006ld/sRAP MQCPRAPV2hfGn TR Peak Gr.54ecQmSONE75gaKs Pulmonary Vein S1 Giausnmd41.8cm/sD2 Gmpwwlqm28.1cm/s PVa [id number] LEFT VENTRICLE The left ventricle is normal size. There is normal left ventricular wall thickness. The left ventricu lar systolic function is normal. The Ejection Fraction is 55-60%. There is normal LV segmental wall m otion. Transmitral Doppler flow pattern is Grade I-abnormal relaxation pattern. RIGHT VENTRICLE The right ventricle is normal size. There is normal right ventricular wall thickness. The right ventr icular systolic function is normal. ATRIA The left atrium size is normal. The right atrium size is normal. The interatrial septum is intact wit h no evidence for an atrial septal defect or patent foramen ovale as noted on 2-D or Doppler imaging. AORTIC VALVE The aortic valve is normal in structure and function. Doppler and Color Flow revealed no significant aortic regurgitation. Calculated aortic valve area is 2.17 cm2 with maximum pressure gradient of 8 mm Hg and mean pressure gradient of 4 mmHg. There is no significant aortic valvular stenosis. MITRAL VALVE The mitral valve is normal in structure and function. There is no evidence of mitral valve prolapse. There is no mitral valve stenosis. Doppler and Color-flow revealed trace mitral regurgitation. TRICUSPID VALVE The tricuspid valve is normal in structure and function. Doppler and Color Flow revealed trace tricus pid regurgitation with an estimated PAP of 20 mmHg. There is no tricuspid valve stenosis. PULMONIC VALVE The pulmonic valve is not well visualized. Doppler and Color Flow revealed trace pulmonic valvular re gurgitation. GREAT VESSELS The aortic root is normal in size. The IVC is normal in size and collapses >50% with inspiration. PERICARDIAL EFFUSION There is no pleural effusion. There is no evidence of significant pericardial effusion. Critical Notification Critical Value: No <Conclusion> The left ventricular systolic function is normal. The Ejection Fraction is 55-60%. There is normal LV segmental wall motion. Transmitral Doppler flow pattern is Grade I-abnormal relaxation pattern. Trace mitral regurgitation. Trace tricuspid regurgitation with an estimated PAP of 20 mmHg. There is no evidence of significant pericardial effusion. Signed by : Mono Baxter, Electronically Approved : 03/04/2021 13:10:08
== END ==
LOC: NM 08:43
PROVIDERS: ATTEND Internal Medicine Cardiovascular Disease
DX: R07.9 Chest pain, unspecified (principal)
CPT/HCPCS: 78452; 93017; 93306; A9500; J2785

== ENCOUNTER → 2021-09-26 | Outpatient (CLI) | payer MEDICARE ==
[~2021-09-26] MED LIST changes: -REGADENOSON 0.4 MG/5 ML DISP.SYRIN. IV ONE
--- NOTE | 2021-09-26 11:21 | RAD ---
EXAM: CT OF THE CHEST WITHOUT CONTRAST. HISTORY: Interstitial lung disease. TECHNIQUE: Computed tomography of the chest was performed without intravenous contrast. One or more o f the following individualized dose reduction techniques were utilized for this examination: 1. Automated exposure control. 2. Adjustment of the mA and/or kV according to patient size. 3. Use of iterative reconstruction technique. COMPARISON: 08/27/2020. FINDINGS: Images of the upper abdomen reveal a 2.2 cm benign cyst in the left kidney medially. Interv al gallbladder Bone windows reveal no suspicious lesions. There are no pathologically enlarged mediastinal or axillary lymph nodes. There is no pleural or taz cardial effusion. The heart is not enlarged. There are atherosclerotic calcifications of the coronary arteries. There is mild bronchiectasis inferiorly in the right middle lobe and lingula with surrounding interst itial line thickening. There is also pleural parenchymal scarring in the apices. IMPRESSION: 1. Stable mild bronchiectasis and scarring in the right middle lobe and lingula. Correlate for chroni c atypical infectious processes such as Mycobacterium avium-intracellulare. Electronically signed by: Angela Odonnell MD (09/26/2021 11:19 AM) [id number]
== END ==
LOC: CT 10:05
PROVIDERS: ATTEND Internal Medicine Critical Care Medicine
DX: J47.9 Bronchiectasis, uncomplicated (principal); N28.1 Cyst of kidney, acquired; I25.10 Atherosclerotic heart disease of native coronary artery without angina pectoris
CPT/HCPCS: 71250